=== PATIENT | male | born 1945 | race Caucasian/White ===

== ENCOUNTER 2024-04-11 17:20 | Emergency (ER) | payer OTHER, SELFPAY ==
[2024-04-11 17:20] VITALS: BMI 29.7
[2024-04-11 17:22] VITALS: BP 168/82
[2024-04-11 17:40] LABS: % Basophils 0.2 % (0-2); % Eosinophils 1.5 % (0-6); % Immature Granulocytes 0.3 % (0-0.5); % Monocytes 6.2 % (1.7-9.3); % Neutrophils 81.8 % (42.2-75.2); Absolute Eosinophils 0.1 10^3/uL (0-0.7); Absolute Lymphocytes 0.9 10^3/uL (1.2-3.4); Absolute Monocytes 0.6 10^3/uL (0.1-0.6); Absolute Neutrophils 7.7 10^3/uL (1.4-6.5); Hematocrit 34.4 % (39.0-52.0); Hemoglobin 11.9 g/dL (13.0-18.0); Mean Corp Hgb Conc. 34.6 g/dL (33.0-37.0); Mean Corpuscular Volume 92.5 fL (80.0-94.0); Mean Platelet Volume 8.8 fL (7.4-10.4); Nucleated Red Blood Cells % 0 % (-); Platelet Count 231 10^3/uL (130-400); Red Blood Cell Count 3.72 10^6/uL (4.70-6.10); Red Cell Dist. Width 13.2 % (11.5-14.5); White Blood Cell Count 9.4 10^3/uL (4.8-10.8)
[2024-04-11 18:00] LABS: ALT (SGPT) 19 U/L (0-50); AST (SGOT) 28 U/L (17-59); Albumin 4.3 g/dl (3.5-5.0); Alkaline Phosphatase 61 U/L (38-126); Blood Urea Nitrogen 32 mg/dl (9-20); Calcium 9.3 mg/dl (8.4-10.2); Carbon Dioxide 22 mmol/L (22-30); Chloride 103 mmol/L (98-107); Glucose 161 mg/dl (70-99); Potassium 4.7 mmol/L (3.5-5.1); Sodium 137 mmol/L (135-145); Total Bilirubin 0.4 mg/dl (0.2-1.3); Total Protein 6.5 g/dl (6.3-8.2); eGFR 43.56
[2024-04-11 18:41] VITALS: BP 141/69
--- NOTE | 2024-04-11 19:00 | ED.GENMED ---
History of Present Illness
General
Chief Complaint: Dizziness
Source: patient and spouse
Exam Limitations: none
Time Seen by Provider: 04/11/24 18:59
Nursing documentation reviewed up to this point in time: agreed with
History of Present Illness
History of Present Illness:
Patient presents to ED secondary to approximately 20 seconds of near syncope, along with confusion and 'slobbering speech' while having lunch this afternoon with his . Patient states that he had been outside working in the backyard for
approximately 3 hours, prior to having lunch. He said he was extremely hungry and consumed his food very quickly. Denies preceding chest pain or palpitations. Denies shortness of breath. Denies dizziness. Denies nausea or vomiting. Denies loss
of sensation or weakness. Denies difficulty with swallowing. Denies previous history of similar symptoms. Denies recent change in medications or diet. Denies recent illness. Patient states his family physician every 3 months for routine
evaluation.
Past History
Past History
ED Past Medical History: Negative GERD or Hypercholesterolemia
ED Past Surgical History: Orthopedic (carpal tunnel)
Social History
Tobacco: Non-smoker
Alcohol: None
Drug: None
Living: with family
Employment: Employed
Family History
Family History: Hypertension
Review of Systems
Review of Systems
Allergies reviewed?: Yes
All Other Systems: ROS reviewed and negative except as documented in HPI and ROS
Constitutional: Reports no symptoms
EENT: Reports no symptoms
Respiratory: Reports no symptoms
Cardiac: Reports other
ABD/GI: Reports no symptoms
Musculoskeletal: Reports no symptoms
Skin: Reports no symptoms
Neurological: Reports no symptoms
Phy Exam
Physical Exam
Physical Exam:
Physical Exam
General: no apparent distress, not acutely ill. afebrile
Head: nc/at. eomi
Neck: supple. no meningeal signs.
Heart: s1/s2 regular rate and rhythm, no murmur. equal radial pulses.
Lungs: no acute respiratory distress. clear bilaterally
Abdomen: normal bowel sounds. not tender.
Neuro: alert and oriented. no focal neurological deficits
Skin: no rash
Psychiatric: well kept. interactive and cooperative
Extremities: no edema. no calf tenderness.
Course
Orders/Labs/Results
Orders:
Orders
04/11/24 17:27
Electrocardiogram (*1) Urgent
Reason for Study: Vertigo / Dizzy
EKG- Treatment ONCE
04/11/24 17:36
CMP [Comprehensive Metabolic Panel] Urgent
Complete Blood Count/With Diff Urgent
04/11/24 19:01
Orthostatic VS- Treatment ONCE
Abnormal Lab Results
04/11/24
17:36
RBC 3.72 L 10^6/uL
(4.70-6.10)
Hgb 11.9 L g/dL
(13.0-18.0)
Hct 34.4 L %
(39.0-52.0)
MCH 32.0 H pg
(27.0-31.0)
Absolute Neuts (auto) 7.7 H 10^3/uL
(1.4-6.5)
Absolute Lymphs (auto) 0.9 L 10^3/uL
(1.2-3.4)
Neutrophils % 81.8 H %
(42.2-75.2)
Lymphocytes % 10.0 L %
(20.5-51.1)
BUN 32 H mg/dl
(9-20)
Creatinine 1.6 H mg/dL
(0.7-1.3)
Glucose 161 H mg/dl
(70-99)
04/11/24 17:36
04/11/24 17:36
Vital Signs
Initial and Last Documented VS:
Initial Vital Signs
Temp Pulse Resp BP Pulse Ox
97.7 F 84 16 168/82 96
04/11/24 17:22 04/11/24 17:22 04/11/24 17:22 04/11/24 17:22 04/11/24 17:22
Last Documented Vital Signs
Temp Pulse Resp BP Pulse Ox
97.7 F 79 15 141/69 94
04/11/24 17:22 04/11/24 18:42 04/11/24 18:42 04/11/24 18:41 04/11/24 18:42
MDM/Problems Addressed
MDM/Problems Addressed:
History and exam consistent with no syncopal episode, which may be multifactorial, including fatigue, dehydration, postprandial vagal response, less likely TIA. However, patient does carry multiple risk factors for potential TIA event. However,
symptoms were such short duration without any residual deficit, do not feel that any further workup at this time is necessary, especially with other etiology being more likely. In addition, reviewed blood work and discussed with patient, including
what appears to be acute renal failure, likely secondary to dehydration, especially with what happened this morning having worked outside and humid hot weather for over 3 hours. Patient felt as though he lost at least 1 pound of weight after he had
completed his work. Patient has an appointment with his family physician soon, at which time he will repeat blood work. Advised staying indoors over the next couple days, and staying hydrated, as well as schedule follow-up with his primary care
physician. Patient expresses understanding at time of discharge, to the care of his .
*EKG
Interpreted by ED Provider?: Yes
EKG Intrepretation Date: 04/11/24
Heart Rate: 81
Rate: normal
Rhythm: sinus
[place]: normal axis
Interval: first degree heart block
QRS Pattern: normal QRS
*Critical Care Note
Total Time (30-74mins, 75-104mins- exclusive of procedures): Not Applicable
ED Attending Note
-
Portions of this chart may have been created with voice recognition software.� Occasional wrong word or��sound alike� substitutions may have occurred due to the inherent limitations of voice recognition software.
Discharge Plan
Departure
Patient Disposition: Home (Routine Discharge)
Date of Disposition: 04/11/24
Time of Disposition: 19:25
Patient with high blood pressure during this ER visit?: Yes
Discharge Problem:
Near syncope, Acute renal failure (ARF)
Instructions: Acute kidney injury, Near Fainting (DC)
Prescriptions:
No Action
oxycodone-acetaminophen 5 MG/325 MG tablet
1 tab PO .Q4-6HPRN PRN (Reason: pain) Qty: 20 0RF
cephalexin 500 MG capsule
500 mg PO QID Qty: 40 0RF
ibuprofen 600 MG tablet
600 mg PO Q6H Qty: 30 0RF
Referrals:
Trevin Epstein, [Family Provider] -
Activity Restrictions/Additional Instructions:
As discussed, please follow-up with your primary care physician for reevaluation, including repeat blood work in 1 to 2 weeks.
Interventions
Interventions:
*Risk Screen - Suicide Last Done: 04/11/24 18:30
*General Assessment Last Done: 04/11/24 17:22
*Neglect/Abuse Screening Last Done: 04/11/24 18:30
*ED COVID-19 Vaccine History Last Done: 04/11/24 17:22
*Nursing Disposition Last Done: 04/11/24 19:51
ED- Neurological Assessment Last Done: 04/11/24 18:30
Discharge Date and Time
Discharge Date/Time: 04/11/24 19:52
Print Language: GAMBIAN
[2024-04-11 19:34] VITALS: BP 150/82; BP 154/78; BP 160/73; PULSE 78; PULSE 80; PULSE 81
== END 2024-04-11 19:52 | disposition home or self-care (01) ==
LOC: EMR 17:20
PROVIDERS: Emergency Medicine; EMERGENCY PHYSICIAN Emergency Medicine; FAMILY PHYSICIAN Student in an Organized Health Care Education/Training Program
DX: R55 Syncope and collapse (principal); N17.9 Acute kidney failure, unspecified; R03.0 Elevated blood-pressure reading, without diagnosis of hypertension; E11.9 Type 2 diabetes mellitus without complications; I44.0 Atrioventricular block, first degree; Z79.84 Long term (current) use of oral hypoglycemic drugs; Z89.022 Acquired absence of left finger(s)
CPT/HCPCS: 99283; 80053; 85025; 93005

== ENCOUNTER → 2024-05-17 08:05 | Outpatient (REF) | payer OTHER, SELFPAY | LOC: HWRAD 08:05 | PROVIDERS: ATTENDING PHYSICIAN Student in an Organized Health Care Education/Training Program | DX: N18.31 Chronic kidney disease, stage 3a (principal) | CPT/HCPCS: 76775 ==

== ENCOUNTER → 2024-06-21 07:14 | Outpatient (REF) | payer OTHER, SELFPAY | LOC: MRI 3T 07:14 | PROVIDERS: ATTENDING PHYSICIAN Student in an Organized Health Care Education/Training Program | DX: N28.89 Other specified disorders of kidney and ureter (principal) | CPT/HCPCS: 74183; A9575 ==

== ENCOUNTER → 2024-07-11 10:04 | Outpatient (REF) | payer OTHER, SELFPAY | LOC: RAD 10:04 | PROVIDERS: ATTENDING PHYSICIAN Urology; FAMILY PHYSICIAN Student in an Organized Health Care Education/Training Program | DX: D41.02 Neoplasm of uncertain behavior of left kidney (principal) | CPT/HCPCS: 78708; A9539 ==

== ENCOUNTER → 2025-02-12 11:04 | Outpatient (REF) | payer OTHER, SELFPAY | LOC: MRI 3T 11:04 | PROVIDERS: ATTENDING PHYSICIAN Urology; FAMILY PHYSICIAN Student in an Organized Health Care Education/Training Program | DX: D41.02 Neoplasm of uncertain behavior of left kidney (principal) | CPT/HCPCS: 74183; A9575 ==

== ENCOUNTER → 2025-10-06 09:18 | Outpatient (REF) | payer OTHER, SELFPAY | LOC: MRI 3T 09:18 | PROVIDERS: ATTENDING PHYSICIAN Urology; FAMILY PHYSICIAN Student in an Organized Health Care Education/Training Program | DX: R35.1 Nocturia (principal) | CPT/HCPCS: 74183; A9575 ==